=== PATIENT | male | born 1970 | race Caucasian/White ===

== ENCOUNTER 2022-06-03 13:10 | Outpatient (CLI) | payer OTHER, SELFPAY ==
[2022-06-03 13:47] LABS: Hemoglobin* 14.9 gm/dL (13.5-17.5); Mean Corpuscular HGB Conc 35 gm/dL (32-36); Mean Corpuscular Hemoglobin 31 pg (26-34); Mean Corpuscular Volume 89 fL (80-100); Platelet Count* 218 K/uL (140-440); Red Blood Count 4.85 m/uL (4.30-5.90); White Blood Count* 7.79 K/uL (4.50-11.00)
[2022-06-03 13:49] LABS: Slide Review Reflex No
[2022-06-03 22:10] LABS: Albumin* 4.9 g/dL (3.3-5.0); Chloride* 95 mmol/L (96-114); Potassium* 3.4 mmol/L (3.6-5.1); Sodium* 135 mmol/L (135-149)
[2022-06-03 22:12] LABS: Cholesterol* 168 mg/dL (90-199); Creatinine* 0.8 mg/dL (0.5-1.5); Estimated Glomerular Filt Rate 106 ml/min
[2022-06-03 22:13] LABS: Alanine Aminotransferase* 33 U/L (4-50); Alkaline Phosphatase* 65 U/L (40-150); Aspartate Amino Transferase* 32 U/L (12-35); Bilirubin Total* 0.7 mg/dL (0.1-1.5); Blood Urea Nitrogen* 22 mg/dL (7-30); Calcium* 9.2 mg/dL (8.4-10.6); Carbon Dioxide* 30 mmol/L (20-32); Glucose* 81 mg/dL (60-115); Total Protein* 7.4 g/dL (6.0-8.3); Triglycerides* 123 mg/dL (40-149)
[2022-06-03 22:14] LABS: HDL Cholesterol* 42 mg/dL (>=40); LDL Cholesterol Calculated 101 mg/dL (<100)
[2022-06-03 23:25] LABS: Creatinine Urine 14.9 mg/dL; Microalbumin Creatinine Ratio 60 mg/g (0-30); Microalbumin Urine < 1 mg/dL
== END 2022-06-03 13:11 | disposition home or self-care (01) ==
PROVIDERS: PCP Family Medicine; Visit Provider Family Medicine
DX: Z00.00 Encounter for general adult medical examination without abnormal findings (principal); I10 Essential (primary) hypertension; Z13.6 Encounter for screening for cardiovascular disorders
CPT/HCPCS: 80053; 80061; 82043; 82570; 85027

== ENCOUNTER 2023-06-29 08:38 | Outpatient (CLI) | payer OTHER, SELFPAY | END 2023-06-29 08:39 | disposition home or self-care (01) | PROVIDERS: PCP Family Medicine; Visit Provider Family Medicine | DX: Z00.00 Encounter for general adult medical examination without abnormal findings (principal); I10 Essential (primary) hypertension; Z13.6 Encounter for screening for cardiovascular disorders | CPT/HCPCS: 80053; 80061; 82043; 82570; 83735 ==

== ENCOUNTER 2023-07-22 09:03 | Outpatient (CLI) | payer OTHER, SELFPAY | END 2023-07-22 09:04 | disposition home or self-care (01) | LOC: NFLDREF 07-25 08:11 | PROVIDERS: PCP Family Medicine; Referring Provider Family Medicine; Visit Provider Family Medicine | DX: I10 Essential (primary) hypertension (principal) | CPT/HCPCS: 80048 ==

== ENCOUNTER 2023-08-29 08:08 | Outpatient (CLI) | payer OTHER, SELFPAY ==
[2023-08-29 13:55] LABS: PSA Screen* 1.55 ng/mL (0.10-4.00)
== END 2023-08-29 08:09 | disposition home or self-care (01) ==
PROVIDERS: PCP Family Medicine; Visit Provider Family Medicine
DX: Z12.5 Encounter for screening for malignant neoplasm of prostate (principal); I10 Essential (primary) hypertension
CPT/HCPCS: 80053; 82043; 82570; 83735; 84153

== ENCOUNTER 2023-11-17 07:32 | Outpatient (CLI) | payer OTHER, SELFPAY | END 2023-11-17 07:33 | disposition home or self-care (01) | LOC: NFLDREF 11-28 13:09 | PROVIDERS: PCP Family Medicine; Referring Provider Family Medicine; Visit Provider Family Medicine | DX: I10 Essential (primary) hypertension (principal) | CPT/HCPCS: 80048; 83735 ==

== ENCOUNTER 2023-11-23 07:31 | Outpatient (CLI) | payer OTHER, SELFPAY | END 2023-11-23 07:32 | disposition home or self-care (01) | LOC: NFLDREF 12-06 20:19 | PROVIDERS: PCP Family Medicine; Referring Provider Family Medicine; Visit Provider Physician Assistant Medical | DX: E87.6 Hypokalemia (principal); Z13.220 Encounter for screening for lipoid disorders | CPT/HCPCS: 80061; 84132 ==

== ENCOUNTER 2024-01-28 21:02 | Emergency (ER) | payer OTHER, SELFPAY ==
[2024-01-28 21:18] VITALS: BP 136/74; PULSE 76; RESP 16; TEMP 36.7; O2SAT 98; BMI 24.1
--- NOTE | 2024-01-28 21:45 | ED_ITS ---
HPI - Wound/Laceration General Time Seen by Provider: 21:45 Date Seen: 01/28/24 Chief Complaint: Laceration/Wound Stated Complaint: laceration left middle finger Time Seen by Provider: 01/28/24 21:45 Source: patient and RN notes reviewed Mode of arrival: ambulatory Limitations: no limitations History of Present Illness HPI narrative: This 53-year-old male is coming in with ongoing bleeding of wound sustained to his left 3rd finger while cutting vegetables. He was cutting peppers, slice the edge of his left 3rd finger. The skin was completely cut off. He is coming in because it continues to bleed. Patient is on no blood thinners. His tetanus is up-to-date. He did bandage it after it happened, bandages have soaked with blood. Onset (ago): minute(s) Place: home Patient tetanus UTD: Yes (06/02/21) Context: accidental Related Data Previous Rx's Medication Instructions Recorded atenolol 50 mg tablet 50 mg PO QDAY #90 tabs 06/29/23 potassium chloride 20 mEq 40 meq (2 x 20 mEq) PO QDAY #180 11/24/23 tablet,extended release tabs losartan 25 mg tablet 25 mg PO DAILY #90 tabs 12/20/23 Allergies Allergy/AdvReac Type Severity Reaction Status Date / Time amlodipine Allergy Verified 08/29/23 09:10 iodine Allergy Verified 08/29/23 09:10 penicillin V Allergy Verified 08/29/23 09:10 Lisinopril Allergy Uncoded 08/29/23 09:10 Review of Systems Narrative: As per HPI. PFSH PFS Surgical History (Updated 06/02/22 @ 11:13 by Alexus Elias~[facility]) History of vasectomy ?Z98.52 - Vasectomy status (ICD-10) History of tonsillectomy ?Z90.89 - Acquired absence of other organs (ICD-10) History of colonoscopy ?Z98.890 - Other specified postprocedural states (ICD-10) History of bilateral inguinal hernia repair ?Z98.890 - Other specified postprocedural states (ICD-10) ?Z87.19 - Personal history of other diseases of the digestive system (ICD-10) History of arthroscopy of knee ?Z98.890 - Other specified postprocedural states (ICD-10) Family History (Updated 06/02/22 @ 21:54 by MeredithSuly Villarreal) Father Stroke Mother Emphysema lung Mental disorder Unknown Diabetes Social History Smoking Status: Never smoker Little interest or pleasure in doing things: not at all Feeling down, depressed, or hopeless: not at all Exam Const: Vital Signs, click to edit/add: Vital Signs - 24 hr 01/28/24 21:18 Temperature 98.0 F Pulse Rate [Pulse Oximeter] 76 Respiratory Rate 16 Blood Pressure [Ri ght Upper Arm] 136/74 Pulse Oximetry 98 Oxygen Delivery Me thod Room Air This 53-year-old male has a small bandage on the end of his left 3rd finger. There is blood soaked through the bandages. The bandage was removed, has a small defect where he has cut the superficial skin off along the edge of the pad laterally by the nail fold. The nail is intact. The wound did start mildly oozing blood. Surgifoam was applied then a bulky dressing placed. Documenting provider has reviewed patient's vital signs: yes Course Vital Signs Vital signs: Initial Vital Signs Temperature 98.0 F 01/28/24 21:18 Temperature Source Temporal Artery Scan 01/28/24 21:18 Pulse Rate 76 01/28/24 21:18 Pulse Rhythm Regular 01/28/24 21:18 Respiratory Rate 16 01/28/24 21:18 Blood Pressure 136/74 01/28/24 21:18 Blood Pressure Mean 94 01/28/24 21:18 Blood Pressure Position Sitting 01/28/24 21:18 Pulse Oximetry 98 01/28/24 21:18 Oxygen Delivery Method Room Air 01/28/24 21:18 Vital Signs Temperature 98.0 F 01/28/24 21:18 Pulse Rate 76 01/28/24 21:18 Respiratory Rate 16 01/28/24 21:18 Blood Pressure 136/74 01/28/24 21:18 Pulse Oximetry 98 01/28/24 21:18 Oxygen Delivery Method Room Air 01/28/24 21:18 Temperature 98.0 F 01/28/24 21:18 Pulse Rate 76 01/28/24 21:18 Respiratory Rate 16 01/28/24 21:18 Blood Pressure 136/74 01/28/24 21:18 Pulse Oximetry 98 01/28/24 21:18 Oxygen Delivery Method Room Air 01/28/24 21:18 Discharge Plan Discharge Clinical Impression: Avulsion of skin of finger Qualifiers: Encounter type: initial encounter Qualified Code(s): S61.209A - Unspecified open wound of unspecified finger without damage to nail, initial encounter Patient Disposition: Home, Self-Care Condition: Stable Instructions: Skin Avulsion (ED) Additional Instructions: Try to leave this dressing on for the next 48 hours. Do not pull the bottom layer, which is the surgifoam, off. Allow this to fall off on its own time. After 48 hours, still would bandage this area but can wash and shower as you normally would. If you have concerns about infection such as increasing redness, pain, purulent discharge or associated fever with these symptoms, do need to be re-evaluated. Try to minimize use of this finger for the next few days and elevate this hand as much as able to to help decrease bleeding. Prescriptions: No Action atenolol 50 mg tablet 50 mg PO QDAY Qty: 90 3RF potassium chloride 20 mEq tablet extended release 40 meq PO QDAY Qty: 180 0RF losartan 25 mg tablet 25 mg PO DAILY Qty: 90 0RF Follow Up/Referrals: Pamela Mooney DO [Primary Care Provider] - Stand Alone Forms: [employer] Info Instructions
== END 2024-01-28 22:20 | disposition home or self-care (01) ==
LOC: ED 22:10
PROVIDERS: Emergency Provider Family Medicine
DX: S61.203A Unspecified open wound of left middle finger without damage to nail, initial encounter (principal); W26.0XXA Contact with knife, initial encounter
CPT/HCPCS: 99282; 99283

== ENCOUNTER 2024-08-14 08:06 | Outpatient (CLI) | payer OTHER, SELFPAY | END 2024-08-14 08:07 | disposition home or self-care (01) | LOC: NFLDREF 08-15 12:32 | PROVIDERS: PCP Physician Assistant Medical; Referring Provider Physician Assistant Medical; Visit Provider Physician Assistant Medical | DX: I10 Essential (primary) hypertension (principal); Z12.5 Encounter for screening for malignant neoplasm of prostate; Z13.6 Encounter for screening for cardiovascular disorders; Z13.29 Encounter for screening for other suspected endocrine disorder | CPT/HCPCS: 80053; 80061; 84443; G0103 ==